=== PATIENT | female | born 1980 | race African-American/Black ===

== ENCOUNTER 2016-10-20 19:03 | Emergency (ER) | payer OTHER ==
[2016-10-20 19:20] VITALS: BP 106/76; PULSE 76; TEMP 98.5; BMI 32.2
--- NOTE | 2016-10-20 20:04 | PDOC ---
History of Present Illness - General Chief Complaint: Pain, Acute Stated Complaint: PCP SENT/ABDOMINAL PAIN Time Seen by Provider: 10/20/16 19:37 History Source: Patient Exam Limitations: No Limitations - History of Present Illness Travel History: No Initial Comments: 10/20/16 20:00 36yo Female patient with no significant past medical history presents to ED from [facility]. Patient states this past Friday, she ate a burger, then shortly after developed nausea/vomiting which progressed to diarrhea and weakness the following day. Patient reports having diarrhea and lower abd pain today, which is why she went to Urgent Care. She was sent from [facility] because her urinalysis showed large blood and large leukocytes with lower abd pain. Patient believes all her symptoms stem from this Burger she ate and is requesting minimal studies. LNMP: September 09. Timing/Duration: reports: constant Quality: reports: mild, cramping Abdominal Pain Onset Location: reports: RLQ, LLQ Pain Radiation: reports: no radiation Activities at Onset: reports: no specific activity Treatment Prior to Arrive: worse with: analgesics, antacids, cold pack, heat, laxative, enema, other Aggravating Factors: worse with: None, Defecation, Eating, Emotional upset, Exertion, [place], Movement, Voiding, Change in position Alleviating Factors: worse with: None, Belching, Shallow Breathing, Defecation, Eating, Holding Breath, Passing Gas, Change in Position, Rest, Voiding, Vomiting Past History - Travel Traveled outside of the country in the last 30 days: No Close contact w/someone who was outside of country & ill: No - Past Medical History Allergies/Adverse Reactions: Allergies Allergy/AdvReac Type Severity Reaction Status Date / Time No Known Allergies Allergy Verified 10/20/16 19:10 Home Medications: Ambulatory Orders No Home Medications 0 dose .ROUTE UTDICT 10/24/13 Famotidine [Pepcid -] 40 mg PO BID #14 tablet 10/20/16 - Family Disease History Family Disease History: Diabetes: Father, Heart Disease: Father - Psycho/Social/Smoking Cessation Hx Suicidal Ideation: No Smoking History: Never smoked Hx Alcohol Use: No Drug/Substance Use Hx: No Substance Use Type: None Hx Substance Use Treatment: No Abd/GI Specific PMHX - Complaint Specific PMHX Colitis: No Diverticulitis: No Gall Bladder Disease: No GERD: No Hepatitis: No Irritable Bowel Synd (IBS): No Pancreatitis: No GI Ulcer Disease: No Review of Systems - Review of Systems Able to Perform ROS?: Yes Is the patient limited Telugu proficient: No Constitutional: No: Chills, Fever Respiratory: No: Cough, Shortness of Breath, Stridor Cardiac (ROS): No: Chest Pain, Lightheadedness, Chest Tightness ABD/GI: Yes: Diarrhea, Nausea, Vomiting, Abdominal cramping. No: Blood Streaked Bowels, Constipated, Poor Appetite, Poor Fluid Intake, Rectal Bleeding : No: Burning, Dysuria, Hematuria, Urgency Musculoskeletal: No: Back Pain Integumentary: No: Erythema, Rash Neurological: No: Headache, Seizure, Unsteady Gait, Ataxia All Other Systems: Reviewed and Negative *Physical Exam - Vital Signs Last Vital Signs Temp Pulse Resp BP Pulse Ox 98.5 F 76 16 106/76 99 10/20/16 19:13 10/20/16 19:13 10/20/16 19:13 10/20/16 19:13 10/20/16 19:13 - Physical Exam General Appearance: Yes: Nourished, Appropriately Dressed. No: Apparent Distress, Mild Distress, Moderate Distress, Severe Distress Neck: positive: Trachea midline, Normal Thyroid, Supple. negative: Stridor, Lymphadenopathy (R), Lymphadenopathy (L) Respiratory/Chest: positive: Lungs Clear, Normal Breath Sounds. negative: Respiratory Distress, Accessory Muscle Use, Labored Respiration, Rapid RR, Stridor Cardiovascular: positive: Regular Rhythm, Regular Rate Gastrointestinal/Abdominal: positive: Soft, Decreased BS. negative: Tender, Distended, Guarding, Rebound, Tenderness Musculoskeletal: positive: Normal Inspection. negative: CVA Tenderness Extremity: positive: Normal Capillary Refill, Normal Inspection, Normal Range of Motion. 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 Patient was instructed to return if she changes her mind or her symptoms worsen. *DC/Admit/Observation/Transfer Diagnosis at time of Disposition: Gastroenteritis, Mild dehydration - Discharge Dispostion Disposition: HOME Condition at time of disposition: Stable Admit: No - Prescriptions Prescriptions: Famotidine [Pepcid -] 40 mg PO BID #14 tablet - Patient Instructions Printed Discharge Instructions: DI for Viral Gastroenteritis -- Adult, DI for Dehydration -- Adult Additional Instructions: FOLLOW UP WITH YOUR PRIMARY CARE PROVIDER. CALL TO SCHEDULE APPOINTMENT. TAKE MEDICATIONS PRESCRIBED. RETURN IF YOU CHANGE YOUR MIND ABOUT HAVING BLOOD WORK AND CT-SCAN OR IF YOUR SYMPTOMS GET WORSE. TAKE PEPCID 40MG TWICE A DAY TO HELP WITH SYMPTOMS. DRINK PLENTY FLUIDS. Print Language: CITIZEN OF [place]
[2016-10-20 20:10] LABS: URINE APPEARANCE CLEAR; URINE BILIRUBIN NEGATIVE (NEGATIVE); URINE COLOR DKYELLOW; URINE GLUCOSE (UA) NEGATIVE (NEGATIVE); URINE KETONE TRACE (NEGATIVE); URINE NITRITE NEGATIVE (NEGATIVE); URINE UROBILINOGEN NEGATIVE E.U./dl (0.2-1.0)
[2016-10-20 20:11] LABS: URINE BLOOD 2+ (NEGATIVE); URINE LEUK ESTERASE TRACE (NEGATIVE); URINE PROTEIN 1+ (NEGATIVE)
[2016-10-20 20:38] LABS: URINE MUCUS MANY; URINE RBC 19 /hpf (0-3); URINE WBC 5 /hpf (3-5)
== END 2016-10-20 21:00 | disposition home or self-care (01) ==
LOC: JER 19:03
DX: K52.9 Noninfective gastroenteritis and colitis, unspecified (principal); E86.0 Dehydration
CPT/HCPCS: 81003; 81015; 84703; 87086; 99282-25